=== PATIENT | female | born 1960 | race African-American/Black ===

== ENCOUNTER 2022-03-01 10:16 | Emergency (ER) | payer BC, MEDICAID ==
[~2022-03-01] VITALS: Ht 180.3 cm; Wt 93.5 kg
[2022-03-01] MEDS ORDERED: INSULIN (10:28)
[2022-03-01] MEDS ORDERED: LOSARTAN (10:28)
[2022-03-01] MEDS ORDERED: ATENOLOL (10:28)
[2022-03-01] MEDS ORDERED: ACETAMINOPHEN 325MG TABLET PO ONE (10:45)
[2022-03-01] MEDS ORDERED: BACITRACIN ZINC OINT UDPKT TOP NR (10:45)
[2022-03-01] MEDS ORDERED: TETANUS, DIPHTHERIA, PERTUSSIS VAC/PF 0.5ML (>10YR OLD) IM ONE (10:45)
[2022-03-01] MEDS ORDERED: MORPHINE SULFATE 10 MG/ML CPJ IM ONE (10:45)
[2022-03-01] MEDS ORDERED: OXYC20TA79 MT (13:17)
[2022-03-01 13:40] VITALS: BP 108/66
== END 2022-03-01 13:46 | disposition home or self-care (01) ==
LOC: ER 10:54
DX: S42.401A Unspecified fracture of lower end of right humerus, initial encounter for closed fracture (principal); Z13.9 Encounter for screening, unspecified; W01.0XXA Fall on same level from slipping, tripping and stumbling without subsequent striking against object, initial encounter; Y93.89 Activity, other specified; Y92.89 Other specified places as the place of occurrence of the external cause; Y99.8 Other external cause status
CPT/HCPCS: 73060; 73070; 73090; 73120; 90471; 90715; 96372; 99284; J2270